=== PATIENT | female | born 1960 | race Caucasian/White ===

== ENCOUNTER 2017-05-23 11:15 | Emergency (ER) | payer OTHER ==
[~2017-05-23] VITALS: Ht 165.1 cm; Wt 101.0 kg
[~2017-05-23 11:15] MED LIST: CYMBALTA30 MG PO; Ecotrin PO; FLEXERIL10 MG PO; LYRICA150 MG PO; LYRICA50 MG PO; OXYCODONE HCL5 MG PO; ULTRAM50 MG PO; ZOFRAN4 MG PO
[2017-05-23 12:09] LABS: HEMATOCRIT 40.8 % (36.0-46.0); MCH 31.8 PG (29.0-34.0); MCHC 33.8 G/DL (30.0-36.0); PLATELET COUNT 281 K/uL (156-360); RED BLOOD COUNT 4.34 M/uL (3.80-5.20); WHITE BLOOD COUNT 7.2 K/uL (4.1-10.2)
[2017-05-23 12:17] LABS: CHLORIDE 103 mEq/L (99-109); POTASSIUM 4.6 mEq/L (3.7-5.4); SODIUM 139 mEq/L (136-147)
[2017-05-23 12:19] LABS: GLUCOSE 153 mg/dL (70-99)
[2017-05-23 12:21] LABS: ANION GAP 10 MEQ/L (2-14); TOTAL BILIRUBIN 0.4 mg/dL (0.0-1.0)
[2017-05-23 12:23] LABS: ALKALINE PHOSPHATASE 77 IU/L (3-129); GFR ESTIMATE (CALCULATED) > 59 mL/min/
[2017-05-23 12:24] LABS: UREA NITROGEN (BUN) 13 mg/dL (9-23)
[2017-05-23 12:54] LABS: BILIRUBIN NEGATIVE; BLOOD NEGATIVE; COLOR YELLOW ((YELLOW)); GLUCOSE (STRIP) NEGATIVE; KETONES NEGATIVE; LEUKOCYTES NEGATIVE; NITRITE NEGATIVE; PROTEIN (STRIP) NEGATIVE; SPECIFIC GRAVITY 1.011 (1.000-1.030); UROBILINOGEN 0.2 MG/DL (0.2-1.0)
[2017-05-23 12:56] LABS: ADD MIUA? NO; UCUL ADDED? NO
[2017-05-23 14:14] LABS: AMYLASE 29 IU/L (1-118)
[2017-05-23 14:23] LABS: LIPASE 42 U/L (1.0-51.0)
[2017-05-23 14:42] LABS: TROP-I INTERPRETATION NEGATIVE; TROPONIN-I < 0.01 ng/mL (0.0-0.30)
[2017-05-23] MEDS ORDERED: PERCOCET 5/31 TABLET PO (16:39)
[2017-05-23] MEDS ORDERED: ZOFRAN ODT4 MG PO (16:40)
[2017-05-23 17:11] VITALS: BP 124/66
== END 2017-05-23 17:12 | disposition home or self-care (01) ==
LOC: EME 11:15
PROVIDERS: Physician Assistant Medical
DX: R10.9 Unspecified abdominal pain (principal); K43.9 Ventral hernia without obstruction or gangrene; R11.2 Nausea with vomiting, unspecified; R05 Cough; K59.8 Other specified functional intestinal disorders; K76.0 Fatty (change of) liver, not elsewhere classified; Z90.49 Acquired absence of other specified parts of digestive tract; Z90.710 Acquired absence of both cervix and uterus; Z87.442 Personal history of urinary calculi; Z85.828 Personal history of other malignant neoplasm of skin; Z79.82 Long term (current) use of aspirin
CPT/HCPCS: 74177; 80053; 81003; 82150; 83690; 84484; 85027; 93005; 99281; 99285; J0780; J1200; J2270; J2405; J7030

== ENCOUNTER → 2017-06-20 | Outpatient (CLI) | payer OTHER ==
[~2017-06-20] VITALS: Ht 165.1 cm; Wt 95.2 kg
[~2017-06-20] MED LIST changes: +GLUCOPHAGE1000 MG PO; +PERCOCET 5/31 TABLET PO; +VENTOLIN HFA18 GM IH; +ZESTRIL20 MG PO; +ZOFRAN ODT4 MG PO
[2017-06-20 13:00] LABS: POINT-OF-CARE METER ID UU14107333
[2017-06-20 14:08] LABS: POINT-OF-CARE METER ID UU13113819
== END | disposition home or self-care (01) ==
LOC: AMB 12:27
PROVIDERS: Internal Medicine
DX: K44.9 Diaphragmatic hernia without obstruction or gangrene (principal); K22.10 Ulcer of esophagus without bleeding; K29.70 Gastritis, unspecified, without bleeding; K29.80 Duodenitis without bleeding; K25.9 Gastric ulcer, unspecified as acute or chronic, without hemorrhage or perforation; I10 Essential (primary) hypertension; E66.9 Obesity, unspecified; K43.2 Incisional hernia without obstruction or gangrene; Z85.828 Personal history of other malignant neoplasm of skin; J45.909 Unspecified asthma, uncomplicated; Z98.84 Bariatric surgery status; Z90.711 Acquired absence of uterus with remaining cervical stump; Z79.84 Long term (current) use of oral hypoglycemic drugs; Z88.2 Allergy status to sulfonamides; Z80.0 Family history of malignant neoplasm of digestive organs; Z82.49 Family history of ischemic heart disease and other diseases of the circulatory system
CPT/HCPCS: 82948; 88305; 88342 TC; J2250; J2405

== ENCOUNTER 2017-07-08 09:22 | Day surgery (SDC) | payer OTHER ==
[~2017-07-08] VITALS: Ht 165.1 cm; Wt 96.2 kg
[~2017-07-08 09:22] MED LIST changes: +MOTRIN800 MG PO; +MULTI-VITAMIN-1 EACH PO; +PROTONIX40 MG PO
[2017-07-08] MEDS ORDERED: TRAMADOL HCL E100 M1 PO (09:53)
[2017-07-08 10:14] VITALS: BP 145/91
[2017-07-08] MEDS ORDERED: COLACE100 MG PO (12:14)
[2017-07-08] MEDS ORDERED: PERCOCET 5/31 TABLET PO (12:14)
[2017-07-08 14:00] VITALS: BP 152/70
[2017-07-08 14:10] VITALS: BP 111/66
[2017-07-08 15:00] VITALS: BP 135/790
== END 2017-07-08 15:25 | disposition home or self-care (01) ==
LOC: SDC 09:22
PROVIDERS: Surgery
PROC: 0WUF4JZ Supplement Abdominal Wall with Synthetic Substitute, Percutaneous Endoscopic Approach (ICD-10-PCS; principal; 2017-07-08)
DX: K43.2 Incisional hernia without obstruction or gangrene (principal); I10 Essential (primary) hypertension; K21.9 Gastro-esophageal reflux disease without esophagitis; E11.9 Type 2 diabetes mellitus without complications; E03.9 Hypothyroidism, unspecified; E66.9 Obesity, unspecified; Z68.35 Body mass index [BMI] 35.0-35.9, adult; J45.909 Unspecified asthma, uncomplicated; Z79.84 Long term (current) use of oral hypoglycemic drugs; Z88.2 Allergy status to sulfonamides; Z86.73 Personal history of transient ischemic attack (TIA), and cerebral infarction without residual deficits
CPT/HCPCS: 82948; 88302; C1781; J0330; J0690; J1100; J1170; J1885; J2405; J2710; J2795; J3010; Q0175